=== PATIENT | female | born 1970 | race Caucasian/White ===

== ENCOUNTER 2018-12-02 15:27 | Emergency (ER) | payer OTHER ==
[~2018-12-02] VITALS: Ht 167.6 cm; Wt 83.9 kg
[2018-12-02 15:31] VITALS: BP 156/94
[2018-12-02] MEDS ORDERED: predniSONE 20 MG TABLET ONE (16:38)
[2018-12-02] MEDS ORDERED: predniSONE 20 MG TABLET PO ONE (17:00)
== END 2018-12-02 17:13 | disposition home or self-care (01) ==
LOC: ER 15:35
DX: L30.9 Dermatitis, unspecified (principal); L03.90 Cellulitis, unspecified; F17.200 Nicotine dependence, unspecified, uncomplicated; Z88.5 Allergy status to narcotic agent

== ENCOUNTER 2021-12-11 12:36 | Emergency (ER) | payer OTHER ==
[~2021-12-11] VITALS: Ht 167.6 cm; Wt 65.8 kg
--- NOTE | 2021-12-11 12:49 | NUR ---
TO ER BED 14, ON AND OFF LEFT LEG SWELLING FOR 2WEEKS, DENIES ANY PAIN, NO SOB, AAOX3, BREATHING EVEN AND NON LABORED, CONNECTED TO MONITOR, AWAITING MD [place]
[2021-12-11 15:01] LABS: BASOPHILS # (AUTO) 0.1 K/uL (0.0-0.2); EOSINOPHILS % (AUTO) 7.1 % (0.0-6.0); HEMATOCRIT 30 % (33-45); HEMOGLOBIN 9.6 g/dL (11.5-14.8); LYMPHOCYTES # (AUTO) 1.7 K/uL (0.8-4.8); LYMPHOCYTES % (AUTO) 17.3 % (20.0-44.0); MEAN CORPUSCULAR HGB CONC 32 g/dl (31.0-36.0); MEAN CORPUSCULAR VOLUME 89 fL (82-100); MONOCYTES # (AUTO) 0.7 K/uL (0.1-1.30); MONOCYTES % (AUTO) 7.1 % (2.0-12.0); NEUTROPHILS # (AUTO) 6.5 K/uL (1.8-8.9); NEUTROPHILS % (AUTO) 67.5 % (43.0-81.0); PLATELET COUNT (AUTO) 418 K/uL (150-450); RED BLOOD CELL COUNT(AUTO) 3.36 MIL/uL (4.0-5.2); WHITE BLOOD COUNT (AUTO) 9.7 K/uL (4.3-11.0)
[2021-12-11 16:32] LABS: D-DIMER 4.58 mg/L(FEU (0.17-0.50)
[2021-12-11 16:40] LABS: CARBON DIOXIDE 22 mmol/L (21-32); CHLORIDE 103 mmol/L (98-107); CREATININE 1.3 mg/dL (0.6-1.3); GLUCOSE 88 mg/dL (74-106); SODIUM SERUM 139 mmol/L (136-145); UREA NITROGEN, BLOOD 19 mg/dL (7-18)
[2021-12-11] MEDS ORDERED: IV NS 0.9% 500 ML IV ONE (17:00)
[2021-12-11] MEDS ORDERED: CT SWABBABLE VALVE TRANS SET 1 EA INFUS.SET MC ONE (17:38)
[2021-12-11] MEDS ORDERED: IV NS 0.9% 250 ML IV ONE (17:38)
[2021-12-11] MEDS ORDERED: IOHEXOL-350 100 ML VIAL IV ONE (17:38)
[2021-12-11 19:50] VITALS: BP 136/88
--- NOTE | 2021-12-11 19:50 | NUR ---
Patient discharged to home in stable condition. Written and verbal after care instructions given. Patient verbalizes understanding of instruction. IV removed. Catheter intact and site benign. Pressure and 4x4 applied to site. No bleeding noted. PT ambulatory with a steady gait
== END 2021-12-11 19:51 | disposition home or self-care (01) ==
LOC: ER 12:42
DX: M79.89 Other specified soft tissue disorders (principal); R05.9 Cough, unspecified; R06.00 Dyspnea, unspecified; R91.8 Other nonspecific abnormal finding of lung field; N13.30 Unspecified hydronephrosis; Z20.822 Contact with and (suspected) exposure to COVID-19; Z88.6 Allergy status to analgesic agent; R19.00 Intra-abdominal and pelvic swelling, mass and lump, unspecified site
CPT/HCPCS: 36415; 71045; 71275; 74176; 80048; 83880; 84484; 85025; 85378; 85730; 87426; 93005; 93971; 99285; C9803 ×2; J7040; J7050; Q9967; U0003